=== PATIENT | male | born 1995 | race Caucasian/White ===

== ENCOUNTER 2017-03-21 11:30 | Observation (INO) | payer OTHER ==
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
[2017-03-21] MEDS ORDERED: HYDROmorphONE/DILAUDID 1 MG/ML SYR IVP ONE ×2 (11:54→12:36)
[2017-03-21] MEDS ORDERED: fentaNYL 100 MCG/2 ML INJ ONE ×5 (12:32→23:55)
[2017-03-21] MEDS ORDERED: HYDROmorphONE/DILAUDID 1 MG/ML SYR ONE (12:32)
[2017-03-21] MEDS ORDERED: NS 1,000 ML IV ONE (12:41)
[2017-03-21 13:09] LABS: % IMMATURE GRANULYOCYTES 0.4 % (0.0-1.1); ABSOLUTE IMMATURE GRANULOCYTES 0.06 10^3/uL (0.00-0.10); ADD DIFF? NO; ADD MORPH? NO; ADD SCAN? NO; ATYPICAL LYMPHOCYTE FLAG 10 (0-99); FRAGMENT RBC FLAG 0 (0-99); HEMATOCRIT 49.7 % (40.0-51.0); LEFT SHIFT FLG 0 (0-99); LIPEMIA HEMOLYSIS FLAG 90 (0-99); MEAN CELL HEMOGLOBIN 31.5 pg (27.9-34.1); MEAN CELL HEMOGLOBIN CONCENTR. 34.2 g/dL (32.4-36.7); MEAN CELL VOLUME 92.2 fL (81.5-99.8); MEAN PLATELET VOLUME 11.4 fL (8.7-11.7); PLATELET CLUMPS FLAG 0 (0-99); PLATELET COUNT 251 10^3/uL (150-400); RED BLOOD CELL COUNT 5.39 10^6/uL (4.40-6.38); RED CELL DISTRIBUTION WIDTH 13.2 % (11.5-15.2)
[2017-03-21 13:14] LABS: INR 0.99 (0.83-1.16)
[2017-03-21 13:15] LABS: APTT 24.4 SEC (23.0-38.0)
[2017-03-21] MEDS ORDERED: D5W 1/2 NS 1,000 ML IV SCH (14:15)
[2017-03-21] MEDS ORDERED: ACETAMINOPHEN 325 MG TAB PO PRN (14:15)
[2017-03-21] MEDS ORDERED: oxyCODONE IR 5 MG TAB PO PRN (14:20)
[2017-03-21 14:23] LABS: CALCIUM 10.2 mg/dL (8.5-10.4); CARBON DIOXIDE 20 mEq/l (22-31); CHLORIDE 99 mEq/L (97-110); CREATININE 0.9 mg/dL (0.7-1.3); GLOMERULAR FILTRATION RATE > 60; GLUCOSE 87 mg/dL (70-100); SODIUM 140 mEq/L (134-144)
[2017-03-21] MEDS: HYDROmorphONE/DILAUDID 1 MG/ML SYR IVP PRN ×3 (14:29→19:50)
[2017-03-21 14:34] LABS: ANION GAP 21 mEq/L (8-16); POTASSIUM 3.4 mEq/L (3.5-5.2)
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
--- NOTE | 2017-03-21 19:03 | SOAPPROG ---
SOAP Progress Note Assessment/Plan: Assessment:21yM p/w Right tib/fib fracture, closed Plan:for OR tonight, Right Tib/fib IMN 03/21/17 19:01 Objective: Vital Signs Temp Pulse Resp BP Pulse Ox 36.7 C 60 14 140/80 H 96 03/21/17 17:51 03/21/17 17:51 03/21/17 17:51 03/21/17 17:51 03/21/17 17:51 03/20/17 03/21/17 03/22/17 05:59 05:59 05:59 Intake Total 2100 Output Total 300 Balance 1800 PT 13.0 SEC (12.0-15.0) 03/21/17 12:30 INR 0.99 (0.83-1.16) 03/21/17 12:30 Please note, splint dressing partially taken down to examine anterior abrasion. ~1cm x 2cm. skin is abraded but no laceration. no exposed bone. ICD10 Worksheet Patient Problems: Problems Problem Status Onset Abrasion Acute Fracture of tibia with fibula, right, closed Acute
[2017-03-21] MEDS: SENNOSIDES/DOCUSATE SODIUM TAB PO SCH (20:30)
[2017-03-21] MEDS ORDERED: MIDAZOLAM 2 MG/2 ML VIAL IVP ONE (20:53)
[2017-03-21] MEDS ORDERED: fentaNYL 100 MCG/2 ML INJ IVP PRN (20:53)
--- NOTE | 2017-03-21 20:54 | PDANEPAE ---
ANE History of Present Illness 21yo M for Tibia fixation ANE Past Medical History - Cardiovascular History Hx Hypertension: No Hx Arrhythmias: No - Pulmonary History Hx COPD: No Hx Oxygen in Use at Home: No - Endocrine History Hx Diabetes: No ANE Review of Systems Review of systems is: negative - Exercise capacity Exercise capacity: limited by disability ANE Patient History - Allergies Allergies/Adverse Reactions: No Known Allergies Allergy (Unverified 03/21/17 11:41) - Home Medications Home Medications: NK [No Known Home Meds] 03/21/17 [Last Taken Unknown] - NPO status NPO Since - Liquids (Date): 03/21/17 NPO Since - Liquids (Time): 09:00 NPO Since - Solids (Date): 03/20/17 NPO Since - Solids (Time): 08:00 - Smoking Hx Smoking Status: Current every day smoker (E-cigarrettes) - Alcohol Use Alcohol Use: None ANE Labs/Vital Signs - Labs Result Diagrams: 03/21/17 12:30 03/21/17 12:30 - Vital Signs Blood Pressure: 143/85 Heart Rate: 58 Respiratory Rate: 16 O2 Sat (%): 98 Height: 175.26 cm Weight: 54.431 kg ANE Physical Exam - Airway Mallampati Score: Class 1 Mouth exam: normal dental/mouth exam - Pulmonary Pulmonary: clear to auscultation - Cardiovascular Cardiovascular: regular rate and rhythym - ASA Status ASA Status: I ANE Anesthesia Plan Anesthesia Plan: GA w LMA
[2017-03-21] MEDS ORDERED: PROPOFOL 200 MG/20 ML VIAL ONE (20:58)
[2017-03-21] MEDS ORDERED: ROCURONIUM 50 MG/5 ML VIAL ONE (20:59)
[2017-03-21] MEDS ORDERED: LIDOCAINE 2% 5 ML SDV ONE (20:59)
[2017-03-21] MEDS ORDERED: MIDAZOLAM 2 MG/2 ML VIAL ONE (21:11)
[2017-03-21] MEDS ORDERED: CEFAZOLIN 2 GM/DEXTROSE/100 ML BAG IV ONE (21:17)
[2017-03-21] MEDS ORDERED: ceFAZolin 2 GM/DEXTROSE 100 ML IV ONE (21:19)
[2017-03-21] MEDS ORDERED: ONDANSETRON 4 MG/2 ML VIAL ONE (21:35)
[2017-03-21] MEDS ORDERED: DEXAMETHASONE 4 MG/ML VIAL ONE (21:35)
[2017-03-21] MEDS ORDERED: LIDOCAINE 1% 300 MG/30 ML SDV ONE (21:49)
[2017-03-21] MEDS ORDERED: BUPIVACAINE 0.25% 30 ML SDV ONE (21:49)
[2017-03-21] MEDS ORDERED: HYDROmorphONE/DILAUDID 1 MG/ML SYR IVP PRN (22:07)
[2017-03-21] MEDS ORDERED: LR 500 ML IV PRN (22:07)
[2017-03-21] MEDS ORDERED: ONDANSETRON 4 MG/2 ML VIAL IVP PRN (22:07)
[2017-03-21] MEDS ORDERED: NALOXONE HCL 0.4 MG/ML INJ IVP PRN (22:07)
[2017-03-21] MEDS ORDERED: ALBUTEROL 3 ML DEYVIAL IH PRN (22:07)
[2017-03-21] MEDS: fentaNYL 100 MCG/2 ML INJ IVP PRN (23:57)
--- NOTE | 2017-03-21 23:57 | POSTANESTH ---
Post Anesthetic Evaluation Cardiovascular Status: Normal, Stable Respiratory Status: Normal, Stable Level of Consciousness/Mental Status: Can Participate in Eval Pain Control: Adequate, Prn Tx Ordered Nausea/Vomiting Control: Adequate, Prn Tx Ordered Complications Possibly Related to Anesthesia: None Noted
[2017-03-22] MEDS ORDERED: ONDANSETRON 4 MG/2 ML VIAL IVP PRN (00:12)
[2017-03-22] MEDS: fentaNYL 100 MCG/2 ML INJ IVP PRN (00:15)
[2017-03-22] MEDS ORDERED: ACETAMINOPHEN 500 MG TAB PO PRN (00:17)
[2017-03-22] MEDS: oxyCODONE IR 5 MG TAB PO PRN ×5 (01:34→15:28)
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
[2017-03-22] MEDS: ceFAZolin 2 GM/DEXTROSE 100 ML IV SCH ×2 (06:05→15:17)
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
--- NOTE | 2017-03-22 08:29 | SOAPPROG ---
SOAP Progress Note Assessment/Plan: Assessment:21yM p/w Right tib/fib fracture, closed POD#1 R IMN Plan: We discussed the postop plan. He is to be released from work for the following 3 weeks. We discussed the moderate soft tissue injuries (bruising, abrasion) seen in surgery. We anticipate that he'll heal well, but we end up keeping some sutures in longer if needed. - Elevate RLE as much as possible at rest above the heart - NWB RLE until followup - Smoking Cessation: discussed need to stop e-cigarettes. - Keep splint clean and dry - PT for crutch training - XRays R tib fib - Pain control: tylenol baseling with additional oxycodone as needed - DVt ppx: ASA qD - D/c home today after clears PT - Followup with Dr. Araujo in 2 weeks (clinic number provided) 03/22/17 08:31 Subjective: POD #1 R tibial nail. Pain well controlled 10/15. feels less painful after surgery. Objective: Vital Signs Temp Pulse Resp BP Pulse Ox 36.8 C 84 14 130/79 H 96 03/22/17 03:32 03/22/17 03:32 03/22/17 03:32 03/22/17 03:32 03/22/17 03:32 03/21/17 03/22/17 03/23/17 05:59 05:59 05:59 Intake Total 3350 Output Total 1450 Balance 1900 PT 13.0 SEC (12.0-15.0) 03/21/17 12:30 INR 0.99 (0.83-1.16) 03/21/17 12:30 RLE: CDI splint. SILT SP/DP/T. BCR x 5. WWP foot. Soft calf. Wiggling toes without pain more vigorously than yesterday. Moving leg without wincing - Pending Discharge Pending Discharge Within 24 Hours: Yes Pending Discharge Date: 03/22/17 Pending Discharge Time: 14:00 ICD10 Worksheet Patient Problems: Problems Problem Status Onset Abrasion Acute Fracture of tibia with fibula, right, closed Acute
[2017-03-22 08:48] VITALS: RESP 16
[2017-03-22] MEDS ORDERED: ASPIRIN EC 325 MG TAB PO SCH (09:00)
[2017-03-22] MEDS: SENNOSIDES/DOCUSATE SODIUM TAB PO SCH (09:51)
[2017-03-22 12:50] VITALS: BP 134/87; PULSE 68; TEMP 98.2; O2SAT 93
== END 2017-03-22 16:14 | disposition home or self-care (01) ==
LOC: F3N 13:18 → OBSVTOIN 14:15 → INTOOBSV 14:15
PROVIDERS: ADMIT Orthopaedic Surgery; ATTEND Orthopaedic Surgery
PROC: 2W3QX1Z Immobilization of Right Lower Leg using Splint (ICD-10-PCS; 2017-03-21)
PROC: 0QHG06Z Insertion of Intramedullary Internal Fixation Device into Right Tibia, Open Approach (ICD-10-PCS; principal; 2017-03-21 21:00)
DX: S82.301A Unspecified fracture of lower end of right tibia, initial encounter for closed fracture (principal); S82.831A Other fracture of upper and lower end of right fibula, initial encounter for closed fracture; S80.811A Abrasion, right lower leg, initial encounter; Y93.55 Activity, bike riding; V18.0XXA Pedal cycle driver injured in noncollision transport accident in nontraffic accident, initial encounter; F17.210 Nicotine dependence, cigarettes, uncomplicated
CPT/HCPCS: 27759; 29515; 73590; 73610; 76001; 97161; C1769; G0378; 96374; C1713; J0690; J1100; J1170; J2250; J2405; J2704; J3010